=== PATIENT | male | born 1990 | race Two or more races ===

== ENCOUNTER 2021-07-18 11:50 | Emergency (ER) | payer OTHER ==
[~2021-07-18] VITALS: Ht 182.9 cm; Wt 117.9 kg
[2021-07-18 14:52] VITALS: BP 132/95
[2021-07-18] MEDS ORDERED: cefTRIAXone SOD 1,000 MG VL IM ONE ×2 (16:30→16:45)
[2021-07-18] MEDS ORDERED: LIDOCAINE 1% HCL (LOCAL ANESTH.) INJ 20ML MDV ONE (16:37)
== END 2021-07-18 16:59 | disposition home or self-care (01) ==
LOC: ER 11:50
DX: S91.302A Unspecified open wound, left foot, initial encounter (principal); S91.301A Unspecified open wound, right foot, initial encounter; F17.210 Nicotine dependence, cigarettes, uncomplicated; Y08.89XA Assault by other specified means, initial encounter; Y93.89 Activity, other specified; Y92.89 Other specified places as the place of occurrence of the external cause; Y99.8 Other external cause status
CPT/HCPCS: 96372; 99283; J0696; J2001